=== PATIENT | female | born 2000 | race Two or more races ===

== ENCOUNTER 2022-08-04 15:10 | Emergency (ER) | payer OTHER, SELFPAY ==
[2022-08-04 15:23] VITALS: BP 94/69; PULSE 96; RESP 16; TEMP 36.8; O2SAT 97; BMI 32.8
[2022-08-04 17:37] LABS: Add Urine Microscopic? NO; Charge for UA Resulting for Rev
--- NOTE | 2022-08-04 17:37 | W.ED.FEMALGU ---
Documented by User: Precious Blake [employer] 08/04/22 18:32 HPI - Female Genitourinary General: Chief complaint: Urogenital-Female Stated complaint: urinary pain Time Seen by Provider: 08/04/22 16:15 History of Present Illness: Patient reports that 1.5 weeks ago she had unprotected intercourse and for the past week she has noticed some yellowish vaginal discharge with a foul smell. She does report some vaginal itching. She reports this seems similar to when she had an STD in the past. She is requesting to have treatment for STD today. She denies any fever or chills. She denies significant pelvic pain but has noted a little bit of cramping. She denies possibility of although she offers that she had unprotected intercourse a week and a half ago. Associated symptoms: Reports vaginal discharge; Deny abdominal pain or nausea Review of Systems Const: Denies: fever(s), chills or body aches Card: Denies: chest pain or palpitations Resp: Denies: dyspnea, productive cough or non-productive cough GI: Denies: abdominal pain, nausea or vomiting : Reports: vaginal odor and vaginal discharge; Denies: flank pain, difficulty voiding or dysuria Physical Exam Const: COMMON NORMALS: no acute distress, patient oriented x3 and alert Resp: COMMON NORMALS: normal respiratory effort, No use of accessory muscles and clear to auscultation bilaterally AUSCULTATION: clear to auscultation bilaterally Cardio: COMMON NORMALS: regular rate, regular rhythm, S1 normal heart sound present, S2 normal heart sound present and No murmurs present (Cardio) RATE: regular rate RHYTHM: regular rhythm HEART SOUNDS: S1 normal heart sound present and S2 normal heart sound present GI: COMMON NORMALS: Normal to inspection, nondistended, normoactive bowel sounds present, Soft to palpation and non-tender PALPATION: Yes Soft to palpation : COMMON NORMALS: Yes no CVA tenderness BLADDER/KIDNEY EXAM: Yes no CVA tenderness Back/Pelvis: COMMON NORMALS: no CVA tenderness Neuro: COMMON NORMALS: patient oriented x3 SENSORIUM/ORIENTATION: Yes alert Course Vital Signs: Vital signs: Vital Signs Temperature 98.3 F 08/04/22 15:23 Pulse Rate 96 08/04/22 15:23 Respiratory Rate 16 08/04/22 15:23 Blood Pressure 94/69 08/04/22 15:23 Pulse Oximetry 97 08/04/22 15:23 Oxygen Delivery Me thod 08/04/22 15:23 MDM - Female Medical Decision Making Consider STI, high risk sexual activity, PID Patient is in no acute distress on exam. She is not ill-appearing or toxic and denies pelvic pain which reduces my suspicion for pelvic inflammatory disease. We will treat patient prophylactically to cover gonorrhea, chlamydia, trichomonas. Send urine for STI testing today. Recommend patient have outpatient HIV, syphilis, hepatitis testing 6 weeks after last unprotected intercourse. Discussed the importance of using barrier protection to prevent the spread of sexually transmitted infections. Advised patient to take antibiotics as directed. Refrain from sexual activity until completion of antibiotics and until you know the results of your STI testing. Follow-up with primary care provider if symptoms are persisting. Return to the ER as needed for new or worsening symptoms Lab Data Laboratory Results HCG, Qual Negative (Negative) 08/04/22 17:21 Urine Color Yellow (Yellow) 08/04/22 17:21 Urine Appearance Clear (CLEAR) 08/04/22 17:21 Urine pH 7 (5-7) 08/04/22 17:21 Ur Specific [place] 1.015 (1.005-1.030) 08/04/22 17:21 Urine Protein Neg (Negative) 08/04/22 17:21 Urine Glucose (UA) Norm (Normal) 08/04/22 17:21 Urine Ketones Negative (Negative) 08/04/22 17:21 Urine Blood Neg (Negative) 08/04/22 17:21 Urine Nitrate Negative (Negative) 08/04/22 17:21 Urine Bilirubin Neg (Negative) 08/04/22 17:21 Urine Urobilinogen Norm mg/dL (Negative) 08/04/22 17:21 Ur Leukocyte Esterase Negative (Negative) 08/04/22 17:21 Discharge Plan Discharge Patient Disposition: Home Clinical Impression: History of sexual behavior with high risk of exposure to communicable disease Condition: Stable Prescriptions: New doxycycline hyclate 100 mg capsule 100 mg PO BID 7 Days Qty: 14 0RF metronidazole 500 mg tablet 500 mg PO BID 7 Days Qty: 14 0RF Discharge Orders: Discharge ED (Routine); Ordered 08/04/22 Ordered By: Precious Blake Discharge Diet: Usual diet Patient Instructions: Sexually Transmitted Diseases (ED) Activity Restrictions/Additional Instructions: Take antibiotics as directed. Follow-up with your primary care provider or the health department in 6 weeks to have routine testing for HIV hepatitis and syphilis. Return to the ER as needed for new or worsening symptoms. Coding Level of Care Code ED [employer] Specialist for Chg Fwd Exam Detailed Documented by User: Calvin Garcia DO 08/05/22 07:13 HPI - Female Genitourinary General: Chief complaint: Urogenital-Female Stated complaint: urinary pain Time Seen by Provider: 08/04/22 16:15 Course Vital Signs: Vital signs: Vital Signs Temperature 98.3 F 08/04/22 15:23 Pulse Rate 96 08/04/22 15:23 Respiratory Rate 16 08/04/22 15:23 Blood Pressure 94/69 08/04/22 15:23 Pulse Oximetry 97 08/04/22 15:23 Oxygen Delivery Me thod 08/04/22 15:23 MDM - Female Medical Decision Making Consider STI, high risk sexual activity, PID Patient is in no acute distress on exam. She is not ill-appearing or toxic and denies pelvic pain which reduces my suspicion for pelvic inflammatory disease. We will treat patient prophylactically to cover gonorrhea, chlamydia, trichomonas. Send urine for STI testing today. Recommend patient have outpatient HIV, syphilis, hepatitis testing 6 weeks after last unprotected intercourse. Discussed the importance of using barrier protection to prevent the spread of sexually transmitted infections. Advised patient to take antibiotics as directed. Refrain from sexual activity until completion of antibiotics and until you know the results of your STI testing. Follow-up with primary care provider if symptoms are persisting. Return to the ER as needed for new or worsening symptoms Chart reviewed and patient discussed with midlevel. Agree with assessment and plan. Medical Records I reviewed the patient's medical records. Lab Data I reviewed the patient's lab results. Laboratory Results HCG, Qual Negative (Negative) 08/04/22 17:21 Urine Color Yellow (Yellow) 08/04/22 17:21 Urine Appearance Clear (CLEAR) 08/04/22 17:21 Urine pH 7 (5-7) 08/04/22 17:21 Ur Specific [place] 1.015 (1.005-1.030) 08/04/22 17:21 Urine Protein Neg (Negative) 08/04/22 17:21 Urine Glucose (UA) Norm (Normal) 08/04/22 17:21 Urine Ketones Negative (Negative) 08/04/22 17:21 Urine Blood Neg (Negative) 08/04/22 17:21 Urine Nitrate Negative (Negative) 08/04/22 17:21 Urine Bilirubin Neg (Negative) 08/04/22 17:21 Urine Urobilinogen Norm mg/dL (Negative) 08/04/22 17:21 Ur Leukocyte Esterase Negative (Negative) 08/04/22 17:21 Discharge Plan Discharge Patient Disposition: Home Clinical Impression: History of sexual behavior with high risk of exposure to communicable disease Condition: Stable Prescriptions: New doxycycline hyclate 100 mg capsule 100 mg PO BID 7 Days Qty: 14 0RF metronidazole 500 mg tablet 500 mg PO BID 7 Days Qty: 14 0RF Discharge Orders: Discharge ED (Routine); Ordered 08/04/22 Ordered By: Precious Blake Discharge Diet: Usual diet Patient Instructions: Sexually Transmitted Diseases (ED) Activity Restrictions/Additional Instructions: Take antibiotics as directed. Follow-up with your primary care provider or the health department in 6 weeks to have routine testing for HIV hepatitis and syphilis. Return to the ER as needed for new or worsening symptoms. Coding Level of Care Code ED [employer] Specialist for [employer] Fwd Exam Detailed
[2022-08-04 17:44] LABS: Bilirubin Urine Neg (Negative); Blood Urine Neg (Negative); Glucose Urine UA Norm (Normal); Ketones Urine Negative (Negative); Leukocyte Esterase Urine Negative (Negative); Nitrate Urine Negative (Negative); Protein Urine Neg (Negative); Specific Gravity, Urine 1.015 (1.005-1.030); Urine Appearance Clear (CLEAR); Urine Color Yellow (Yellow); Urobilinogen Urine Norm (Negative); pH Urine 7 (5-7)
[2022-08-04 17:49] LABS: HCG Qualitative Urine. Negative (Negative)
== END 2022-08-04 18:41 | disposition home or self-care (01) ==
PROVIDERS: Emergency Medicine; Emergency Provider Nurse Practitioner Family
DX: N89.8 Other specified noninflammatory disorders of vagina (principal); Z72.51 High risk heterosexual behavior
CPT/HCPCS: 81003; 81025; 87491; 87591; 87661; 96372; 99284; J0696